=== PATIENT | female | born 1960 | race Caucasian/White ===

== ENCOUNTER → 2023-07-11 14:00 | Outpatient (REF) | payer MEDICARE, SELFPAY | LOC: WDC 14:00 | PROVIDERS: ATTENDING PHYSICIAN Obstetrics & Gynecology Gynecology; FAMILY PHYSICIAN Family Medicine | DX: Z12.31 Encounter for screening mammogram for malignant neoplasm of breast (principal) | CPT/HCPCS: 77063; 77067 ==

== ENCOUNTER → 2023-11-09 12:43 | Outpatient (REF) | payer MEDICARE, SELFPAY | LOC: RAD 12:43 | PROVIDERS: ATTENDING PHYSICIAN Internal Medicine Rheumatology; FAMILY PHYSICIAN Family Medicine | DX: M19.041 Primary osteoarthritis, right hand (principal); M19.042 Primary osteoarthritis, left hand; M19.071 Primary osteoarthritis, right ankle and foot; M25.50 Pain in unspecified joint | CPT/HCPCS: 73130; 73630 ==

== ENCOUNTER → 2024-07-17 13:57 | Outpatient (REF) | payer MEDICARE, SELFPAY | LOC: RAD 13:57 | PROVIDERS: ATTENDING PHYSICIAN Obstetrics & Gynecology Gynecology; FAMILY PHYSICIAN Family Medicine | DX: Z78.0 Asymptomatic menopausal state (principal); Z12.31 Encounter for screening mammogram for malignant neoplasm of breast | CPT/HCPCS: 77063; 77067; 77080; 93005 ==

== ENCOUNTER → 2024-07-26 10:07 | Outpatient (REF) | payer MEDICARE, SELFPAY | LOC: WDC 10:07 | PROVIDERS: ATTENDING PHYSICIAN Family Medicine | DX: R92.8 Other abnormal and inconclusive findings on diagnostic imaging of breast (principal) | CPT/HCPCS: 77065 ==

== ENCOUNTER → 2024-11-01 15:26 | Outpatient (REF) | payer MEDICARE, SELFPAY | LOC: RAD 15:26 | PROVIDERS: ATTENDING PHYSICIAN Family Medicine | DX: M79.641 Pain in right hand (principal); M79.642 Pain in left hand | CPT/HCPCS: 73130 ==

== ENCOUNTER → 2025-01-07 10:21 | Outpatient (REF) | payer MEDICARE, SELFPAY | LOC: WDC 10:21 | PROVIDERS: ATTENDING PHYSICIAN Nurse Practitioner Adult Health; FAMILY PHYSICIAN Family Medicine | DX: N64.59 Other signs and symptoms in breast (principal); N63.20 Unspecified lump in the left breast, unspecified quadrant; N63.23 Unspecified lump in the left breast, lower outer quadrant | CPT/HCPCS: 76642; 77061; 77065 ==

== ENCOUNTER → 2025-03-13 19:41 | Outpatient (REF) | payer MEDICARE, SELFPAY | LOC: PAVMRI 19:41 | PROVIDERS: ATTENDING PHYSICIAN Orthopaedic Surgery; FAMILY PHYSICIAN Family Medicine | DX: M54.50 Low back pain, unspecified (principal); M41.50 Other secondary scoliosis, site unspecified | CPT/HCPCS: 72148 ==

== ENCOUNTER → 2025-04-02 06:56 | Outpatient (REF) | payer MEDICARE, SELFPAY | LOC: RAD 06:56 | PROVIDERS: ATTENDING PHYSICIAN Family Medicine | DX: R93.89 Abnormal findings on diagnostic imaging of other specified body structures (principal) | CPT/HCPCS: 76700 ==

== ENCOUNTER → 2025-04-19 09:37 | Outpatient (REF) | payer MEDICARE, SELFPAY | LOC: MRI 3T 09:37 | PROVIDERS: ATTENDING PHYSICIAN Specialist; FAMILY PHYSICIAN Family Medicine | DX: G35.A Relapsing-remitting multiple sclerosis (principal) | CPT/HCPCS: 70551; 72141; 72146 ==